=== PATIENT | male | born 1975 | race Caucasian/White ===

== ENCOUNTER 2018-03-14 13:06 | Emergency (ER) | payer MEDICARE ==
[2018-03-14 13:36] VITALS: BP 169/88; PULSE 86; RESP 17; TEMP 98.7; O2SAT 98
[2018-03-14] MEDS ORDERED: IBUPROFEN 800 MG TAB PO ONE (14:00)
--- NOTE | 2018-03-14 14:34 | RADRPT ---
EXAM DATE: 03/14/2018 2:20 PM EDT AGE/SEX: 42 years / Male INDICATIONS: Patient complaining of lateral left foot pain after stepping out of truck and rolling a nkle. CLINICAL DATA: This is the patient's initial encounter. Patient reports that signs and symptoms have been present for 1 day and indicates a pain score of 10/10. MEDICAL/SURGICAL HISTORY: None. None. COMPARISON: No prior exams available for comparison. FINDINGS: Bony structures are intact and in normal alignment. Osseous density is normal. Soft tissues are unre markable. No radiopaque foreign bodies seen. CONCLUSION: No evidence of recent bony injury. Electronically signed by: Dragan Nick MD 03/14/2018 2:32 PM EDT
[2018-03-14] MEDS ORDERED: IBUP1TAB7 PO (14:39)
--- NOTE | 2018-03-14 14:39 | PD ---
HPI Chief Complaint: Injury Time Seen by Provider: 13:48 Travel History International Travel<30 days: No Contact w/Intl Traveler<30days: No Traveled to known affect area: No History of Present Illness HPI 42-year-old male presents to emergency department with complaint of left lateral foot pain after stepping out of his truck and rolling his foot. He denies ankle pain. He has been ambulatory on the affected extremity. Denies paresthesias, loss of sensation, decreased range of motion, decreased strength to the affected extremity. Pain is to the fifth metatarsal area. Also has an abrasion to the fifth metatarsal area from scraping on the concrete. Reports being up-to-date on his tetanus vaccination. rates pain 8/10. Worse with ambulation. Better at rest. Has not taken any medication or trying treatments to alleviate his symptoms. History of hypertension and has not taken medication since August. No primary care provider. No known allergies. Has no other medical complaints. No other modifying factors or associated signs and symptoms. PFSH Past Medical History Diabetes: Yes (BORDERLINE) Patient Takes Glucophage: No (diet control) Past Surgical History Appendectomy: Yes Cholecystectomy: Yes Social History Alcohol Use: No Tobacco Use: No Substance Use: No Allergies-Medications (Allergen,Severity, Reaction): Coded Allergies: No Known Allergies (Unverified , 03/14/18) Reported Meds & Prescriptions Reported Meds & Active Scripts Active Ibuprofen 800 Mg Tab 800 Mg PO Q6HR PRN Review of Systems Except as stated in HPI: all other systems reviewed are Neg Physical Exam Narrative GENERAL: Well-nourished, well-developed patient, in no acute distress SKIN: Warm and dry. HEAD: Atraumatic. Normocephalic. EYES: Pupils equal and round. No scleral icterus. No injection or drainage. ENT: Mucosa pink and moist. Airway patent. NECK: Trachea midline. CARDIOVASCULAR: Regular rate. RESPIRATORY: No accessory muscle use. GASTROINTESTINAL: Rounded. MUSCULOSKELETAL: Left ankle without tenderness on palpation and without erythema , edema, ecchymosis. Left foot to the fifth metacarpal region with tenderness on palpation; without erythema, edema, ecchymosis. Left lower extremity is supple and nontense with 2+ pedal pulse and sensory intact. No obvious deformities. No clubbing. No cyanosis. No edema. NEUROLOGICAL: Awake and alert. Oriented 3. No obvious cranial nerve deficits. Motor grossly within normal limits. Normal speech. PSYCHIATRIC: Appropriate mood and affect; insight and judgment normal. Data Data Last Documented VS Vital Signs Date Time Temp Pulse Resp B/P (MAP) Pulse Ox O2 Delivery O2 Flow Rate FiO2 03/14/18 13:36 98.7 86 17 169/88 (115) 98 Orders Orders Foot, Complete (Qtf1pmh) (03/14/18 14:00) Ice/Cold Pack (03/14/18 14:00) Crutches (03/14/18 14:00) Ibuprofen (Motrin) (03/14/18 14:00) Splint Or Brace Apply/Monitor (03/14/18 14:41) Ed Discharge Order (03/14/18 14:41) [facility] Medical Decision Making Medical Screen Exam Complete: Yes Emergency Medical Condition: Yes Medical Record Reviewed: Yes Differential Diagnosis Foot sprain, foot fracture, foot injury Narrative Course 42-year-old male with left foot injury. No ankle pain or reproducible tenderness on palpation of the ankle. Left foot x-ray, ibuprofen ordered. 1440: Left foot x-ray concluded: Foot X-Ray 03/14/18 1400 Signed Impressions: CONCLUSION: No evidence of recent bony injury. Discussed x-ray findings with the patient. Duane bandage and crutches provided for support. Instructed patient to follow-up with symptoms persist greater than 7-10 days. Ibuprofen prescribed for home. Instructed patient to follow up with primary care provider. Patient verbalizes understanding and agreement with treatment plan. Patient is medically cleared and stable for discharge. Discussed reasons to return to the emergency department. Patient agrees with treatment plan. The patients vital signs are stable and the patient is stable for outpatient follow-up and treatment. Patient discharged home, stable and in no acute distress. Diagnosis Primary Impression: Sprain of left foot Qualified Codes: S93.602A - Unspecified sprain of left foot, initial encounter Additional Impression: Abrasion, left foot, initial encounter Referrals: [facility] [employer] Primary Care Physician Patient Instructions: Abrasion (ED), Crutch Instructions (ED), Foot Sprain (ED) , General Instructions Departure Forms: Tests/Procedures Additional Instructions: Tylenol or ibuprofen as directed and as needed for pain and inflammation Rest, ice, compress, and elevate extremity to decrease pain and inflammation Duane bandage for compression and support as needed Crutches for support Avoid aggravating activity; increase activity as tolerated Follow-up with primary care provider/[facility] in regards to management of high blood pressure Follow-up with primary care provider Follow-up with area supervisor as needed Return to the emergency department immediately with worsening of symptoms Med/Other Pt SpecificInfo: Prescription(s) given Scripts Ibuprofen (Ibuprofen) 800 Mg Tab 800 MG PO Q6HR Y for PAIN, #30 TAB 0 Refills Prov: Jessica Cano 03/14/18 Disposition: 01 DISCHARGE HOME Condition: Stable Jessica Cano Mar 14, 2018 14:39
== END 2018-03-14 15:03 | disposition home or self-care (01) ==
LOC: NEPK 13:06
DX: S93.602A Unspecified sprain of left foot, initial encounter (principal); S90.812A Abrasion, left foot, initial encounter; I10 Essential (primary) hypertension; R73.03 Prediabetes; X50.1XXA Overexertion from prolonged static or awkward postures, initial encounter
CPT/HCPCS: 73630; 99283; E0113